=== PATIENT | female | born 1955 | race Caucasian/White ===

== ENCOUNTER 2022-05-18 18:28 | Emergency (ER) | payer OTHER ==
[2022-05-18 18:43] VITALS: BP 102/70; PULSE 77; RESP 18; TEMP 97.5; BMI 36.3
[2022-05-18] MEDS ORDERED: ACETAMINOPHEN 325 MG TABLET (FP) PO ONE (21:12)
[2022-05-18] MEDS ORDERED: KETOROLAC TROMETHAMINE 15 MG/ML VIAL IM ONE (21:12)
[2022-05-18] MEDS ORDERED: ACETAMINOPHEN 325 MG TABLET (FP) ONE (21:14)
[2022-05-18] MEDS ORDERED: KETOROLAC TROMETHAMINE 15 MG/ML VIAL ONE (21:14)
== END 2022-05-18 23:48 | disposition home or self-care (01) ==
LOC: JERFT 18:28 → JER 18:28
PROC: 3E023GC Introduction of Other Therapeutic Substance into Muscle, Percutaneous Approach (ICD-10-PCS; principal; 2022-05-18)
DX: S22.31XA Fracture of one rib, right side, initial encounter for closed fracture (principal); W10.8XXA Fall (on) (from) other stairs and steps, initial encounter
CPT/HCPCS: 71101-TC-RT-FY; 72170-TC-FY; 76775-TC; 99284-25

== ENCOUNTER 2022-10-06 14:59 | Emergency (ER) | payer OTHER ==
[2022-10-06 15:12] VITALS: BP 151/94; PULSE 99; RESP 18; TEMP 97.8; BMI 33.0
== END 2022-10-06 18:17 | disposition home or self-care (01) ==
LOC: JERFT 14:59
DX: Z11.1 Encounter for screening for respiratory tuberculosis (principal)
CPT/HCPCS: 71046-TC-FY; 99283-25

== ENCOUNTER 2023-03-09 13:36 | Emergency (ER) | payer OTHER ==
[2023-03-09 13:50] VITALS: RESP 18; TEMP 98.2; BMI 33.0
[2023-03-09 17:53] VITALS: BP 131/80; PULSE 95
== END 2023-03-09 17:55 | disposition home or self-care (01) ==
LOC: JER 13:36
DX: S62.92XA Unspecified fracture of left hand, initial encounter for closed fracture (principal); S09.90XA Unspecified injury of head, initial encounter; M79.645 Pain in left finger(s); R22.0 Localized swelling, mass and lump, head; W19.XXXA Unspecified fall, initial encounter; W22.8XXA Striking against or struck by other objects, initial encounter
CPT/HCPCS: 70450-TC; 73130-TC-LT-FY; 73130-TC-RT-FY; 99284-25

== ENCOUNTER 2023-04-11 15:22 | Emergency (ER) | payer OTHER ==
[2023-04-11 15:40] VITALS: BMI 28.2
[2023-04-11] MEDS ORDERED: ACETAMINOPHEN 500 MG TABLET (FP) PO ONE (18:52)
[2023-04-11] MEDS ORDERED: KETOROLAC TROMETHAMINE 15 MG/ML VIAL IM ONE (18:52)
[2023-04-11] MEDS ORDERED: ACETAMINOPHEN 500 MG TABLET (FP) ONE (18:56)
[2023-04-11] MEDS ORDERED: KETOROLAC TROMETHAMINE 15 MG/ML VIAL ONE (18:56)
[2023-04-11 21:38] VITALS: BP 123/84; PULSE 72; RESP 19; TEMP 97.9
== END 2023-04-11 21:51 | disposition home or self-care (01) ==
LOC: JERFT 15:22
PROC: 3E0233Z Introduction of Anti-inflammatory into Muscle, Percutaneous Approach (ICD-10-PCS; principal; 2023-04-11)
DX: S20.211A Contusion of right front wall of thorax, initial encounter (principal); S30.1XXA Contusion of abdominal wall, initial encounter; V49.49XA Driver injured in collision with other motor vehicles in traffic accident, initial encounter; Y92.410 Unspecified street and highway as the place of occurrence of the external cause
CPT/HCPCS: 71101-TC-RT-FY; 99284-25